=== PATIENT | female | born 1955 | race Caucasian/White ===

== ENCOUNTER 2019-09-25 13:15 | Outpatient (RCR) | payer BC ==
[2013-11-06 23:58] VITALS: BP 106/62
[~2019-09-25 13:15] MED LIST: DULERA1 ARO IH; SINGULAIR10 MG PO; SYNTHROID0.112 MG PO; SYNTHROID0.125 MG PO
== END 2019-11-25 | disposition still patient (30) ==
LOC: CARDREHAB
DX: Z48.812 Encounter for surgical aftercare following surgery on the circulatory system (principal); Z95.1 Presence of aortocoronary bypass graft